=== PATIENT | female | born 2000 | race African-American/Black ===

== ENCOUNTER 2019-07-01 14:33 | Outpatient (CLI) | payer MEDICAID ==
[2019-07-01 15:20] LABS: ABSOLUTE BASOPHILS # (AUTO) 0.1 10^3/uL (0.0-0.2); ABSOLUTE EOSINOPHILS # (AUTO) 0.1 10^3/uL (0.0-0.6); ABSOLUTE MONOCYTES (AUTO) 0.6 10^3/uL (0.1-1.4); ABSOLUTE NEUT (AUTO) 6.5 10^3/uL (1.7-8.2); BASOPHILS % (AUTO) 0.6 % (0-2); EOSINOPHILS % (AUTO) 0.9 % (0-6); HEMATOCRIT 30.5 % (36.0-47.0); HEMOGLOBIN 10.5 g/dL (12.0-15.5); LYMPHOCYTES % (AUTO) 21.6 % (13-45); MEAN CORPUSCULAR HEMOGLOBIN 26.3 pg (27.0-33.4); MEAN CORPUSCULAR HGB CONC 34.3 g/dL (32.0-36.0); MEAN CORPUSCULAR VOLUME 77 fl (80-97); MONOCYTES % (AUTO) 6.4 % (3-13); PLATELET COUNT 216 10^3/uL (150-450); RED BLOOD COUNT 3.98 10^6/uL (3.72-5.28); SEGMENTED NEUTROPHILS % (AUTO) 70.5 % (42-78); TOTAL CELLS COUNTED % (AUTO) 100 %; WHITE BLOOD COUNT 9.2 10^3/uL (4.0-10.5)
[2019-07-01 15:44] LABS: URINE AMPHETAMINES SCREEN NEGATIVE; URINE BARBITURATES SCREEN NEGATIVE; URINE BENZODIAZEPINES SCREEN NEGATIVE; URINE COCAINE SCREEN NEGATIVE; URINE MARIJUANA (THC) SCREEN NEGATIVE; URINE METHADONE SCREEN NEGATIVE; URINE PHENCYCLIDINE SCREEN NEGATIVE
--- NOTE | 2019-07-01 16:28 | RADIOLOGY REPORT (SQ) ---
EXAM DESCRIPTION: U/S OB 14+ TRNABD 1GES W/O DOP COMPLETED DATE/TIME: 07/01/2019 4:16 pm REASON FOR STUDY: No PNC need complete OB U/S COMPARISON: None. TECHNIQUE: Static and Dynamic grayscale imaging performed of gravid uterus using transabdominal appr oach. Additional selected color Doppler and spectral images recorded. All stored on PACS. LIMITATIONS: None. FINDINGS: FETUSES SEEN:1 EGA: 36 weeks 3 days Calculated using BPD,FL,HC,AC documented on images. Last menstrual period of generates a clinical age of 38 weeks 1 day. BRANDON: 07/26/2019 EFW: 2997 g grams PERCENTILE: 31st percentile WILLIAM: Total WILLIAM 8.7 cm PLACENTA: Fundal GRADE: II PRESENTATION: Cephalic. ANATOMY: HEART RATE: 141 beats per minute. FOUR CHAMBER HEART: Visualized. THREE VESSEL CORD: Yes. CORD INSERTION: Not well seen due to lie KIDNEYS AND BLADDER: Visualized. Appear normal. STOMACH: Visualized. Appears normal. SPINE: Normal as visualized. BRAIN AND LATERAL VENTRICLES: Limited visualization, grossly normal OTHER: Facial left arm and left leg were difficult to visualize due to lie MATERNAL ADNEXA: Not visualized CERVICAL LENGTH: Not visualized OTHER: No other significant finding. IMPRESSION: LIVING INTRAUTERINE . ESTIMATED GESTATIONAL AGE 36 weeks 3 days NO VISUALIZED ANOMALIES. Trimester of : Third trimester - 28 weeks to delivery. TECHNICAL DOCUMENTATION: JOB ID: [id number] [employer]- All Rights Reserved Reading location - IP/workstation name: [email or web address]
[2019-07-01 16:59] LABS: CHLAM PCR DETECTED (NOT DETECT)
--- NOTE | 2019-07-01 17:35 | Non Stress Test Report ---
Non Stress Test Datetime Report Generated by CPN: 07/01/2019 17:34 DEMOGRAPHIC EGA NST: 36.3 INDICATION Indication for Study: Ordered by Provider VITAL SIGNS Temperature - NST: 98.0 RESP - NST: 16 MONITORING Monitor Explained: Monitor Explained; Test Explained Time on Monitor: 07/01/2019 14:52 Time off Monitor: 07/01/2019 17:31 NST Duration: 159 NST INTERVENTIONS NST Interventions: Reposition Patient Physician Notified NST: Dr. Red on unit, reviewed fht BABY A: [id number] BABY A Movement : Present Contraction Frequency : 2-5 FHR Baseline : 130 Accelerations : 15X15 Decelerations : None Variability : Moderate 6-25bpm NST Review: Meets Criteria for Reactive NST NST Review and Verified By : YENIFER Vance NST Results: Reactive NST REPORT Report Trigger: Send Report
[2019-07-05 07:02] LABS: HEPATITS B SURFACE ANTIGEN Negative (Negative)
== END 2019-07-01 16:37 | disposition home or self-care (01) ==
LOC: LC 14:33
PROVIDERS: ATTEND Obstetrics & Gynecology Gynecology
PROC: 4A1HXCZ Monitoring of Products of Conception, Cardiac Rate, External Approach (ICD-10-PCS; principal; 2019-07-01)
DX: O47.03 False labor before 37 completed weeks of gestation, third trimester (principal); Z3A.36 36 weeks gestation of pregnancy
CPT/HCPCS: 36415; 59025; 76805; 80307; 85025; 86592; 86701; 86762; 86850; 86900; 86901; 87077; 87081; 87340; 87491; 87521; 87591

== ENCOUNTER 2019-07-01 22:35 | Inpatient (IN) | payer MEDICAID ==
[2019-07-02] MEDS ORDERED: CEFTRIAXONE INJ 250 MG VIAL IV ONE (01:00)
[2019-07-02] MEDS ORDERED: AZITHROMYCIN INJ 500 MG VIAL IV ONE ×2 (01:03→01:09)
[2019-07-02] MEDS ORDERED: CEFTRIAXONE INJ 1000 MG VIAL ONE (01:08)
[2019-07-02] MEDS ORDERED: PHENYLEPHRINE HCL INJ/PF 10 MG/1 ML SDV ONE ×2 (01:29→09:25)
[2019-07-02] MEDS ORDERED: FENTANYL CITRATE INJ/PF 100 MCG/2 ML AMPUL ONE ×3 (01:29→10:48)
[2019-07-02] MEDS ORDERED: BUPIVACAINE HCL 0.25 % INJ/PF (2.5 MG/1 ML) 30 ML VIAL ONE (01:30)
[2019-07-02] MEDS ORDERED: EPHEDRINE SULFATE INJ 50 MG/1 ML AMPULE ONE ×2 (01:30→09:26)
[2019-07-02] MEDS ORDERED: FENTANYL/BUPIVACAINE/NS/PF 300 MCG/150 ML RTUINJ EPI ONE (01:30)
[2019-07-02] MEDS ORDERED: PENICILLIN G-K 5 MILLION UNIT VIAL ONE ×3 (01:33→08:28)
[2019-07-02] MEDS ORDERED: MISOPROSTOL 0.2 MG TABLET ONE (01:39)
[2019-07-02] MEDS ORDERED: OXYTOCIN 10 UNIT/ML VIAL ONE ×3 (01:39→10:49)
[2019-07-02] MEDS ORDERED: LIDOCAINE 1% INJ-PF (10 MG/ML) 30 ML SDV ONE (01:40)
[2019-07-02] MEDS ORDERED: OXYTOCIN/NORMAL SALINE 0 UNIT/0 ML RTUINJ ONE (01:40)
[2019-07-02] MEDS ORDERED: CEFTRIAXONE INJ 1000 MG VIAL IV ONE (02:36)
[2019-07-02] MEDS ORDERED: CEFTRIAXONE 1 GM/D5W RTU 1 GM/50 ML RTUPB IV ONE (03:00)
--- NOTE | 2019-07-02 03:21 | Admission Physical ---
Datetime Report Generated by CPN: 07/02/2019 03:21 CURRENT ADMISSION Chief Complaint: Uterine Contractions Indication for Induction: Not Applicable Admit Impression : Term, Intrauterine Admit Plan: Admit to Unit; Initiate Labor Protocol ALLERGIES Medication Allergies: No Medication Allergies: No Known Allergies (02/09/2016) Latex: No Latex Allergies OBSTETRICAL HISTORY EDC: 07/14/2019 00:00 : 2 Para: 1 Livin Gestational Diabetes: No Rh Sensitization: No Incompetent Cervix: No JOBY: No Infertility: No ART Treatment: No Uterine Anomaly: No IUGR: No Hx Previous C/S: No Macrosomia: No Hx Loss/Stillborn: No PIH: No Hx : No Placenta Previa/Abruption: No Depression/PP Depression: No PTL/PROM: No Post Hemorrhage: No Current Procedures: Ultrasound Obstetrical History Comments: G1: 2014 term vaginal 6lbs girl G2: current SEE RECORDS Alcohol: No Marijuana : No Cocaine: No Other Illicit Drugs: No Cigarettes: Never Smoker. [id number] MEDICAL HISTORY Diabetes: No Blood Transfusion: No Pulmonary Disease (Asthma, TB): No Breast Disease: No Hypertension: No Marketing Campaign Analyst Surgery: No Heart Disease: No Hosp/Surgery: Yes Autoimmune Disorder: No Anesthetic Complications: No Kidney Disease: No Abnormal Pap Smear: No Neuro/Epilepsy: No Psychiatric Disorders: No Other Medical Diseases: No Hepatitis/Liver Disease: No Significant Family History: No Varicosities/Phlebitis: No Trauma/Violence : No Thyroid Dysfunction: No Medical History Comments: pt is positive for chlamydia and GC positive INFECTIOUS HISTORY Gonorrhea: No Genital Herpes: No Chlamydia: No Tuberculosis: No Syphilis: No Hepatitis: No HIV/AIDS Exposure: No Rash or Viral Illness: No HPV: No PHYSICAL EXAM General: Normal HEENT: Normal Neurologic: Normal Thyroid: Normal Heart: Normal Lungs: Normal Breast: Deferred Back: Normal Abdomen: Normal Genitourinary Exam: Normal Extremities: Normal DTRs: Normal Pelvic Type: Adequate FETUS A EGA: 38.2 PLANS FOR LABOR AND DELIVERY Labor and Delivery: None Pain Management: Epidural Feeding Preference: Formula Benefit of Breast Feed Discussed: Yes INFORMED CONSENT Signature: with User ID: [email or web address]
[2019-07-02] MEDS ORDERED: PENICILLIN G-K 5 MILLION UNIT VIAL IV SCH (05:00)
[2019-07-02] MEDS: PENICILLIN G POTASSIUM 2,500,000 UNIT in DEXTROSE 5%-WATER 50 ML IV SCH ×2 (05:00→08:41)
[2019-07-02] MEDS ORDERED: DIPHENHYDRAMINE HCL 50 MG/ML VIAL IV ONE ×2 (06:37→08:41)
[2019-07-02] MEDS ORDERED: DIPHENHYDRAMINE HCL 50 MG/ML VIAL ONE ×2 (06:39→08:28)
[2019-07-02] MEDS ORDERED: CEFAZOLIN 1 GM/D5W RTU 2 GM/100 ML RTUPB IV ONE (09:13)
[2019-07-02] MEDS ORDERED: CITRIC ACID/SODIUM CITRATE ORAL SOLN 15 ML UDCUP ONE (09:13)
[2019-07-02] MEDS ORDERED: ONDANSETRON HCL INJ/PF 4 MG/2 ML SDV ONE (09:24)
[2019-07-02] MEDS ORDERED: KETOROLAC TROMETHAMINE INJ/PF 30 MG/1 ML SDV ONE (09:24)
[2019-07-02] MEDS ORDERED: MIDAZOLAM 2 MG/2 ML INJ ONE (09:24)
[2019-07-02] MEDS ORDERED: LIDOCAINE 2% INJ-PF (20 MG/ML) 10 ML AMPUL ONE (09:25)
[2019-07-02] MEDS ORDERED: METHYLERGONOVINE MALEATE INJ/PF 0.2 MG/1 ML AMPULE ONE (10:09)
[2019-07-02] MEDS ORDERED: MORPHINE SULFATE 10 MG/ML INJ IV PRN (10:17)
[2019-07-02] MEDS ORDERED: PROMETHAZINE HCL INJ 25 MG/1 ML VIAL IV PRN ×3 (10:17→11:57)
[2019-07-02] MEDS ORDERED: FENTANYL CITRATE INJ/PF 100 MCG/2 ML AMPUL IV PRN ×3 (10:17)
[2019-07-02] MEDS ORDERED: OXYCODONE-ACETAMINOPHEN 5-325 MG TABLET PO PRN ×3 (10:17→11:57)
[2019-07-02] MEDS ORDERED: DIPHENHYDRAMINE HCL 50 MG/ML VIAL IV PRN (10:17)
[2019-07-02] MEDS ORDERED: MEPERIDINE HCL/PF INJ 25 MG/1 ML DISP.SYRIN IV PRN (10:17)
[2019-07-02] MEDS ORDERED: MORPHINE SULFATE 10 MG/ML INJ ONE (11:29)
[2019-07-02] MEDS ORDERED: HYDROMORPHONE HCL INJ/PF 2 MG/ML AMPULE ONE (11:32)
[2019-07-02] MEDS ORDERED: PROMETHAZINE HCL INJ 25 MG/1 ML VIAL ONE (11:32)
--- NOTE | 2019-07-02 11:43 | PDOC DELIVERY SUMMARY ---
Delivery Summary - Maternal Number of Living Children: 0 BRANDON: 07/26/19 Gestational Age: 38.2 Risk Factors: No Care Ruptured Membranes: SROM Fluids: Clear - Delivery Presentation: Vertex Heart Rate Monitoring: Externally Uterine Contraction Monitoring: External Pattern: Variable Decels Support Person Present: Yes Location: LD : Primary Placenta: Within Normal Limits Placenta Description: Normal appearing Number of Vessels (Cord): 3 Nuchal Cord: No Delivery of Placenta Date: 07/02/19 Estimated Blood Loss: 1300 ml - Delivery Personnel Gas Turbine Powerplant Mechanic Helper: MELISSA BONNER MD: LYUBOV THOMPSON
[2019-07-02] MEDS ORDERED: DIPH/PERTUSS(ACELL)/TETANUS VAC/PF 0.5 ML SYR (>=10YO) IM PRN (11:57)
[2019-07-02] MEDS ORDERED: ACETAMINOPHEN 325 MG TABLET PO PRN (11:57)
[2019-07-02] MEDS ORDERED: MEASLES,MUMPS&RUBELLA VACC/PF 0.5 ML VIAL SUBCUT PRN (11:57)
[2019-07-02] MEDS ORDERED: OXYTOCIN/NORMAL SALINE 20 UNIT/1,000 ML RTUINJ IV PRN (11:57)
[2019-07-02] MEDS ORDERED: ACETAMINOPHEN 1,000 MG/100 ML RTUPB IV PRN (11:57)
[2019-07-02] MEDS ORDERED: RINGERS SOLUTION,LACTATED 1,000 ML IV PRN (11:57)
[2019-07-02] MEDS ORDERED: MORPHINE SULFATE 10 MG/ML INJ IM PRN (11:57)
--- NOTE | 2019-07-02 11:57 | Operative Report ---
Operative Report DATE OF SURGERY: 07/02/19 PREOPERATIVE DIAGNOSIS: 1. Intrauterine at 38-2/7 weeks. 2. Catego ry 2 heart tones. 3. Failure to progress. 4. tachycardia. 5. No care. 6. GBS unknown. 7. Positive gonorrhea and Chlamydia. 8. Anemia. 9. Rh+. 10. Rubella immune POSTOPERATIVE DIAGNOSIS: Same plus Bandl ring OPERATION: Urgent primary low transverse section SURGEON: LYUBOV GASTON ANESTHESIA: Epidural TISSUE REMOVED OR ALTERED: Placenta COMPLICATIONS: Bandl ring ESTIMATED BLOOD LOSS: QBL 1,100 ml INTRAOPERATIVE FINDINGS: Female and a cephalic position; Apgars 7 at 1 8 at 5 with a weight of 6 pounds 7 ounces; globus uterus with Bandl ring, normal bilateral tubes and ovaries PROCEDURE: The patient was taken to the operating room where her epidural found to be adequate. She was then prepped and draped in the normal sterile fashion and placed in the dorsal supine position with a leftward tilt. A Pfannenstiel skin incision was then made and carried through to the underlying layers of the fascia with the scalpel. The fascia was incised in the midline and the incision extended laterally with the Parekh scissors. The superior aspect of the fascial incision was then grasped with Alex clamps elevated and the underlying rectus muscles dissected off both bluntly and sharply. Attention was then turned to the inferior aspect of the fascial incision which in a similar fashion was grasped, tented up with Alex clamps, and the rectus muscles dissected off both bluntly and sharply. The rectus muscles were then in the midline and the peritoneum was identified and entered both sharply and bluntly. The peritoneal incision was then extended superiorly and inferiorly with good visualization of the bladder. The bladder blade was inserted and the vesicouterine peritoneum identified grasped with Moroccan pickups and entered sharply with the Metzenbaum scissors. This incision was then extended laterally with the Metzenbaum scissors and a bladder flap created digitally. The bladder blade was then reinserted and the lower uterine segment incised in a transverse fashion with the scalpel. The uterine incision was then extended bluntly and with the bandage scissors. The bladder blade was removed and the 's head was delivered from cephalic presentation, atraumatically. There was a Bandl ring which was tightly situated around the babies neck, which made it difficult to extract the rest of the body. The uterus was then incised vertically in order to region and remove the anterior arm, which made room for the rest of the body to be delivered. The cord doubly clamped and cut. The infant was handed off to waiting pediatricians. The placenta was then delivered manually and the uterus was not exteriorized, secondary to its globus fundal region. Uterus was then cleared of all clots and debris. The uterine incision was then repaired with 0 Vicryl in a running locked fashion. 0-Chromic was used to repair the first layer of the vertical incision. 0 Vicryl was then used for the second layer. Hemostasis was noted. I then used 0 Vicryl again to imbricate the initial layer. Interceed was placed overlying the uterine incision, as well as a piece placed vertically on the anterior surface of the uterus, to prevent adhesions. The gutters were cleared of all clots and debris. The peritoneum was closed with 2-0 Vicryl in a running fashion. There was generalized oozing beneath the fascia, therefore Surgicel was placed in the area. The fascia was reapproximated with 0 Vicryl in a running fashion from each lateral edge to the midline. The subcutaneous fat layer was then closed in an interrupted fashion with 3-0 vicryl. The skin was closed with 4-0 Monocryl in a running, subcuticular fashion. The patient tolerated the procedure well. Sponge, lap, needle and instrument counts are correct x 2. 2 g of Ancef were given prior to skin incision. The patient was taken to the recovery area awake and in stable condition.
--- NOTE | 2019-07-02 12:06 | Warning Signs in Babies ---
VOD Warning Signs Datetime Report Generated by [facility]: 07/02/2019 12:06 VOD#[id number] -Warning Signs in Babies: Needs to be viewed. (07/01/2019 14:54:[place] wKok RN)
[2019-07-02 13:07] LABS: APPEARANCE,URINE SLIGHTLY-CLOUDY; BILIRUBIN,URINE NEGATIVE (NEGATIVE); COLOR,URINE AMBER; GLUCOSE, URINE 50 mg/dL (NEGATIVE); KETONES,URINE TRACE mg/dL (NEGATIVE); LEUKOCYTE ESTERASE,URINE MODERATE (NEGATIVE); NITRITE,URINE NEGATIVE (NEGATIVE); PROTEIN,URINE 100 mg/dL (NEGATIVE); UROBILINOGEN,URINE NEGATIVE mg/dL (<2.0)
[2019-07-02 13:33] LABS: URINE AMPHETAMINES SCREEN NEGATIVE; URINE BARBITURATES SCREEN NEGATIVE; URINE COCAINE SCREEN NEGATIVE; URINE MARIJUANA (THC) SCREEN NEGATIVE; URINE METHADONE SCREEN NEGATIVE; URINE PHENCYCLIDINE SCREEN NEGATIVE
[2019-07-02 13:36] LABS: URINE BENZODIAZEPINES SCREEN UNCONFIRMED POSITIVE
[2019-07-02] MEDS: OXYCODONE-ACETAMINOPHEN 5-325 MG TABLET PO PRN ×2 (14:32→20:10)
[2019-07-02] MEDS: DOCUSATE SODIUM 100 MG CAPSULE PO SCH (17:47)
[2019-07-03] MEDS: OXYCODONE-ACETAMINOPHEN 5-325 MG TABLET PO PRN ×4 (04:35→18:02)
[2019-07-03 07:00] LABS: HEMATOCRIT 16.4 % (36.0-47.0); MEAN CORPUSCULAR HEMOGLOBIN 26.7 pg (27.0-33.4); MEAN CORPUSCULAR VOLUME 76 fl (80-97); PLATELET COUNT 163 10^3/uL (150-450); RED BLOOD COUNT 2.15 10^6/uL (3.72-5.28); RED CELL DISTRIBUTION WIDTH 14.9 % (11.5-14.0); WHITE BLOOD COUNT 15.6 10^3/uL (4.0-10.5)
[2019-07-03 07:07] LABS: HEMOGLOBIN 5.7 g/dL (12.0-15.5)
[2019-07-03] MEDS ORDERED: DIPHENHYDRAMINE HCL 25 MG CAPSULE PO PRN (07:26)
[2019-07-03] MEDS ORDERED: FUROSEMIDE INJ/PF 20 MG/2 ML SDV IV PRN (07:26)
[2019-07-03] MEDS ORDERED: ACETAMINOPHEN 325 MG TABLET PO PRN (07:26)
--- NOTE | 2019-07-03 07:47 | Delivery Summary ---
Del Sum A-C Datetime Report Generated by CPN: 07/03/2019 07:47 DELIVERY PERSONNEL DELIVERY PERSONNEL: [id number] Delivery Doctor:: Yeny Perez MD Anesthesiologist:: Tammy Pena MD ACID OPERATOR:: Lara Meza CRNA [place]:: Marielena Harley, RN Environmental Services Floor Tech/SHOP DIRECTOR: Lexie Barrera, ST Environmental Services Floor Tech/SHOP DIRECTOR: Selvin Abdullahi, AVIATION SURVIVAL TECHNICIAN MATERNAL INFORMATION Delivery Anesthesia: Epidural Medications After Delivery: Pitocin Drip 20 Units/1000ml NSS Delivery QBL: 1101 LABOR SUMMARY EDC: 07/14/2019 00:00 No. Babies in Womb: 1 Attempted: No Labor Anesthesia: Epidural LABOR INFORMATION Reason for Induction: Not Applicable Onset of Labor: 07/02/2019 00:55 Oxytocin: N/A Group B Beta Strep: unknown Antibiotics # of Doses: 3 Antibiotics Time of Last Dose: 08:42 Name of Antibiotic Given: penicillin Steroids Given: None Reason Steroids Not Administered: Not Applicable MEMBRANES Membranes Rupture Method: Spontaneous Rupture of Membranes: 07/02/2019 00:55 Length of Rupture (hr): 9.15 Amniotic Fluid Color: Clear Amniotic Fluid Amount: Small Amniotic Fluid Odor: Normal STAGES OF LABOR Stage 3 hr: 0 Stage 3 min: 1 Total Time in Labor hr: 9 Total Time in Labor min: 10 VAGINAL DELIVERY Episiotomy: None Laceration #1: None Laceration Extension #1: N/A Laceration Repair: Not Applicable Sponge Count Correct: N/A Sharps Count Correct: N/A CSECTION DELIVERY Primary Indication: Nonreassuring Status CSection Urgency: Non-Scheduled CSection Incidence: Primary Labor: Labor Elective: Nonelective CSection Incision: Lower Uterine Transverse BABY A INFORMATION Infant Delivery Date/Time: 07/02/2019 10:04 Method of Delivery: Born in Route : No : N/A Forceps: N/A Vacuum Extraction: N/A Shoulder Dystocia : No PRESENTATION/POSITION BABY A Presentation: Cephalic Presentation: Cephalic Presentation: Cephalic Cephalic Presentation: Vertex Breech Presentation: N/A PLACENTA INFORMATION BABY A Placenta Delivery Time : 07/02/2019 10:05 Placenta Method of Delivery: Manual Removal Placenta Status: Delivered SCORES BABY A Heart Rate 1 min: >100 bpm Resp Effort 1 min: Good Cry Reflex Irritability 1 min: Cough or Sneeze or Pulls Away Muscle Tone 1 min: Flaccid Color 1 min: Body [place], Extremities Blue SCORE 1 MIN: 7 Heart Rate 5 min: >100 bpm Resp Effort 5 min: Good Cry Reflex Irritability 5 min: Cough or Sneeze or Pulls Away Muscle Tone 5 min: Some Flexion of Extremities Color 5 min: Body [place], Extremities Blue SCORE 5 MIN: 8 INFANT INFORMATION BABY A Gestational Age at Delivery: 38.2 Gestational Status: Early Term- 37- 38.6 Weeks Infant Outcome : Liveborn Infant Condition : Stable Infant Sex: Female IDENTIFICATION BABY A Verification Date/Time: 07/02/2019 11:35 ID Band Number: [id number] Mother's Name Verified: Yes RN Verifying : Angel Harley Additional Verifying Personnel: [place] Kwok WEIGHT/LENGTH BABY A Birthweight (gm): 2930 Weight (lb): 6 Infant Weight (oz): 7 Infant Length (in): 19.75 Length (cm): 50.17 CORD INFORMATION BABY A No. Cord Vessels: 3 Nuchal Cord : N/A Cord Blood Taken: No-Annotate ASSESSMENT BABY A Skin to Skin: No BABY B INFORMATION : N/A SIGNATURES : I was personally available for consultation and serving as supervising physician for the MLP.
[2019-07-03] MEDS: DOCUSATE SODIUM 100 MG CAPSULE PO SCH ×2 (10:55→17:55)
[2019-07-03] MEDS: PRENATAL VITAMIN W DHA CAPSULE PO SCH (10:55)
--- NOTE | 2019-07-03 11:51 | PDOC PROGRESS REPORT ---
Subjective-OB Progress Note for:: 07/03/19 Subjective: reports bleeding slowing, pain controlled with current meds, denies needs, currently receiving blood transfusion Physical Exam (OB) Vital Signs: Temp Pulse Resp BP Pulse Ox 97.8 F 91 16 114/69 97 07/03/19 10:48 07/03/19 10:48 07/03/19 10:48 07/03/19 10:48 07/03/19 10:48 Intake & Output 07/02/19 07/03/19 07/04/19 06:59 06:59 06:59 Intake Total 1600 0 Output Total 900 Balance 700 0 Weight 72.575 kg - Incision: Dressing Closure Type: op site - Abdomen Description: Tender, Soft, Round Hernia Present: No Fundal Description: Firm, Midline Fundal Height: u/u - u/2 - Abdominal Distension: No distension - Extremities Lower extremities: Haritha's sign - neg Calf: Normal, Nontender Objective-Diagnostic Laboratory: 07/03/19 06:17 07/02/19 07/02/19 07/03/19 08:35 12:10 06:17 WBC 15.6 H RBC 2.15 L Hgb 5.7 L D Hct 16.4 L MCV 76 L MCH 26.7 L MCHC 35.0 RDW 14.9 H Plt Count 163 Urine Color JANICE Urine Appearance SLIGHTLY-CLOUDY Urine pH 6.0 Ur Specific [place] 1.020 Urine Protein 100 H Urine Glucose (UA) 50 H Urine Ketones TRACE H Urine Blood LARGE H Urine Nitrite NEGATIVE Ur Leukocyte Esterase MODERATE H Blood Type B POSITIVE Antibody Screen NEGATIVE Assessment and Plan(PN) - Assessment and Plan (1) Anemia due to acute blood loss Is this a current diagnosis for this admission?: Yes (2) hemorrhage Qualifiers: hemorrhage type: secondary hemorrhage Qualified Code(s): O72.2 - Delayed and secondary hemorrhage Is this a current diagnosis for this admission?: Yes (3) Blood transfusion during current hospitalization Is this a current diagnosis for this admission?: Yes (4) No care in current Qualifiers: Trimester: third trimester Qualified Code(s): O09.33 - Supervision of with insufficient care, third trimester Is this a current diagnosis for this admission?: Yes (5) Delivery by section using T-shaped incision Is this a current diagnosis for this admission?: Yes (6) Failure to progress in labor, delivered, current hospitalization Is this a current diagnosis for this admission?: Yes (7) Non-reassuring electronic monitoring tracing Is this a current diagnosis for this admission?: Yes - Time Spent with Patient Time with patient: Less than 15 minutes Medications reviewed and adjusted accordingly: Yes - Disposition Anticipated Discharge: Home Within: within 48 hours
[2019-07-04] MEDS: OXYCODONE-ACETAMINOPHEN 5-325 MG TABLET PO PRN ×4 (05:11→21:35)
[2019-07-04 06:54] LABS: HEMATOCRIT 29.5 % (36.0-47.0); MEAN CORPUSCULAR HEMOGLOBIN 28.3 pg (27.0-33.4); MEAN CORPUSCULAR HGB CONC 34.9 g/dL (32.0-36.0); PLATELET COUNT 156 10^3/uL (150-450); RED BLOOD COUNT 3.63 10^6/uL (3.72-5.28); RED CELL DISTRIBUTION WIDTH 16.1 % (11.5-14.0); WHITE BLOOD COUNT 16.8 10^3/uL (4.0-10.5)
[2019-07-04 07:05] LABS: HEMOGLOBIN 10.3 g/dL (12.0-15.5)
[2019-07-04 07:06] LABS: MEAN CORPUSCULAR VOLUME 81 fl (80-97)
[2019-07-04] MEDS: PENICILLIN G POTASSIUM 2,500,000 UNIT in DEXTROSE 5%-WATER 50 ML IV SCH (07:59)
[2019-07-04] MEDS: PRENATAL VITAMIN W DHA CAPSULE PO SCH (10:16)
[2019-07-04] MEDS: DOCUSATE SODIUM 100 MG CAPSULE PO SCH ×2 (10:16→17:43)
--- NOTE | 2019-07-04 13:16 | PDOC PROGRESS REPORT ---
Subjective-OB Progress Note for:: 07/04/19 Subjective: reports bleeding slowing, pain controlled with current meds, denies needs Physical Exam (OB) Vital Signs: Temp Pulse Resp BP Pulse Ox 98.4 F 92 18 133/87 H 100 07/04/19 12:41 07/04/19 12:41 07/04/19 12:41 07/04/19 12:41 07/04/19 12:41 Intake & Output 07/03/19 07/04/19 07/05/19 06:59 06:59 06:59 Intake Total 1600 2400 Output Total 900 Balance 700 2400 Weight 72.575 kg - Dressing Removed: No - opsite Incision: Dressing Closure Type: op site - Abdomen Description: Tender, Soft Hernia Present: No Fundal Description: Firm, Midline Fundal Height: u/u - u/2 - Abdominal Distension: No distension - Extremities Lower extremities: Haritha's sign - neg Objective-Diagnostic Laboratory: 07/04/19 06:13 07/02/19 07/04/19 08:35 06:13 WBC 16.8 H RBC 3.63 L Hgb 10.3 L D Hct 29.5 L MCV 81 D MCH 28.3 MCHC 34.9 RDW 16.1 H Plt Count 156 Blood Type B POSITIVE Antibody Screen NEGATIVE Assessment and Plan(PN) - Assessment and Plan (1) Anemia due to acute blood loss Is this a current diagnosis for this admission?: Yes (2) hemorrhage Qualifiers: hemorrhage type: secondary hemorrhage Qualified Code(s): O72.2 - Delayed and secondary hemorrhage Is this a current diagnosis for this admission?: Yes (3) Blood transfusion during current hospitalization Is this a current diagnosis for this admission?: Yes (4) No care in current Qualifiers: Trimester: third trimester Qualified Code(s): O09.33 - Supervision of with insufficient care, third trimester Is this a current diagnosis for this admission?: Yes (5) Delivery by section using T-shaped incision Is this a current diagnosis for this admission?: Yes (6) Failure to progress in labor, delivered, current hospitalization Is this a current diagnosis for this admission?: Yes (7) Non-reassuring electronic monitoring tracing Is this a current diagnosis for this admission?: Yes - Time Spent with Patient Time with patient: Less than 15 minutes Medications reviewed and adjusted accordingly: Yes - Disposition Anticipated Discharge: Home Within: within 24 hours
[2019-07-04] MEDS: SIMETHICONE 80 MG TAB.CHEW PO PRN ×2 (14:10→21:35)
[2019-07-05] MEDS: OXYCODONE-ACETAMINOPHEN 5-325 MG TABLET PO PRN ×2 (02:16→08:29)
--- NOTE | 2019-07-05 09:59 | PDOC DISCHARGE SUMMARY ---
Final Diagnosis Discharge Date: 07/05/19 - Final Diagnosis (1) Anemia due to acute blood loss Is this a current diagnosis for this admission?: Yes (2) Blood transfusion during current hospitalization Is this a current diagnosis for this admission?: Yes (3) Delivery by section using T-shaped incision Is this a current diagnosis for this admission?: Yes (4) Failure to progress in labor, delivered, current hospitalization Is this a current diagnosis for this admission?: Yes (5) No care in current Is this a current diagnosis for this admission?: Yes (6) Non-reassuring electronic monitoring tracing Is this a current diagnosis for this admission?: Yes (7) hemorrhage Is this a current diagnosis for this admission?: Yes Discharge Data - Discharge Medication Prescriptions: Oxycodone HCl/Acetaminophen [Percocet 5-325 mg Tablet] 1 tab PO Q4HP PRN #30 tablet PRN Reason: Ibuprofen [Ibu] 800 mg PO Q8HP PRN #60 tablet PRN Reason: Home Medications: No122/Iron/Folic Acid [ Multi Tablet] 1 tab PO DAILY 07/01/19 Ibuprofen [Ibu] 800 mg PO Q8HP PRN #60 tablet 07/05/19 Oxycodone HCl/Acetaminophen [Percocet 5-325 mg Tablet] 1 tab PO Q4HP PRN #30 tablet 07/05/19 Reason(s) for Admission: Onset of Labor Procedures: NST, Management of Obstetric Complications Intrapartum Procedure(s): Other Intrapartum Procedure Note: T shaped uterine incision d/t Bandl Ring - Diagnosis Test Laboratory: Temp Pulse Resp BP Pulse Ox 98.2 F 69 14 140/81 H 99 07/05/19 07:55 07/05/19 07:55 07/05/19 07:55 07/05/19 07:55 07/05/19 07:55 07/02/19 07/03/19 07/04/19 12:10 06:17 06:13 RBC 2.15 L 3.63 L Hgb 5.7 L D 10.3 L D Hct 16.4 L 29.5 L Urine Opiates Screen UNCONFIRMED POSITIVE - Discharge information/Instructions Discharge Activity: Balance Activity w/Rest, No Lifting Over 10 Pounds, No Lifting/Push/Pulling, Pelvic Rest, No tub bath Discharge Diet: Regular Disposition: HOME, SELF-CARE Follow up with: [facility] in: 4, Days
[2019-07-05] MEDS: DOCUSATE SODIUM 100 MG CAPSULE PO SCH (10:16)
[2019-07-05] MEDS: PRENATAL VITAMIN W DHA CAPSULE PO SCH (10:16)
[2019-07-05] MEDS: SIMETHICONE 80 MG TAB.CHEW PO PRN (10:20)
[2019-07-05 16:47] VITALS: BP 125/87
== END 2019-07-05 16:54 | disposition home or self-care (01) | DRG 787 ==
LOC: LC 22:35 → LR 07-02 00:38 → 2N 07-02 13:26
PROVIDERS: ADMIT Obstetrics & Gynecology Gynecology; ATTEND Obstetrics & Gynecology
PROC: 10D00Z1 Extraction of Products of Conception, Low, Open Approach (ICD-10-PCS; principal; 2019-07-02)
PROC: 30233N1 Transfusion of Nonautologous Red Blood Cells into Peripheral Vein, Percutaneous Approach (ICD-10-PCS; 2019-07-03)
DX: O76 Abnormality in fetal heart rate and rhythm complicating labor and delivery (principal); O98.22 Gonorrhea complicating childbirth; D62 Acute posthemorrhagic anemia; O72.1 Other immediate postpartum hemorrhage; O98.32 Other infections with a predominantly sexual mode of transmission complicating childbirth; A56.8 Sexually transmitted chlamydial infection of other sites; O99.02 Anemia complicating childbirth; D64.9 Anemia, unspecified; O62.0 Primary inadequate contractions; Z3A.38 38 weeks gestation of pregnancy; Z37.0 Single live birth
CPT/HCPCS: 1961; 36415; 36430; 80307; 81005; 85027; 86850; 86900; 86901; 86920; 87086; 88307; 94760; 94799; J0131; J0456; J0690; J0696; J1170; J1200; J1885; J2210; J2250; J2270; J2370; J2405; J2540; J2550; J2590; J3010; J3490; J7120; P9016